=== PATIENT | female | born 1960 | race Caucasian/White ===

== ENCOUNTER 2024-05-30 17:44 | Emergency (ER) | payer SELFPAY ==
[2024-05-30 17:46] VITALS: BP 187/110
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
[2024-05-30] MEDS: TYLENOL 1000 MG PO (19:03)
== END 2024-05-30 19:35 | disposition home or self-care (01) ==
LOC: EMR 17:44
PROVIDERS: EMERGENCY PHYSICIAN Emergency Medicine; FAMILY PHYSICIAN Internal Medicine
DX: S16.1XXA Strain of muscle, fascia and tendon at neck level, initial encounter (principal); V49.49XA Driver injured in collision with other motor vehicles in traffic accident, initial encounter; I10 Essential (primary) hypertension; E78.5 Hyperlipidemia, unspecified; Z86.73 Personal history of transient ischemic attack (TIA), and cerebral infarction without residual deficits
CPT/HCPCS: 99284; 70450; 72125